=== PATIENT | male | born 1970 | race Hispanic/Latino ===

== ENCOUNTER 2020-08-30 17:57 | Emergency (ER) | payer MEDICARE ==
[2020-08-30 19:18] LABS: APPEARANCE,URINE SL CLOUDY (CLEAR); BILIRUBIN,URINE NEGATIVE (NEGATIVE); COLOR,URINE YELLOW (YELLOW); GLUCOSE, URINE (UA) NEGATIVE (NEGATIVE); KETONES,URINE 5 mg/dL (NEGATIVE); LEUKOCYTE ESTERASE ,URINE SMALL (NEGATIVE); NITRATE,URINE NEGATIVE (NEGATIVE); OCCULT BLOOD,URINE LARGE (NEGATIVE); PH,URINE 6.5 (5.0-8.0); PROTEIN,URINE 100 mg/dL (NEGATIVE)
[2020-08-30 19:26] LABS: BACTERIA,URINE Few /HPF (None Seen)
[2020-08-30 19:28] LABS: AMORPHOUS SEDIMENT,UR Rare /LPF (None Seen); MUCUS,URINE Few LPF (None Seen); SQUAMOUS EPITHELIAL CELL,UR Few /HPF (0-2)
[2020-08-30] MEDS ORDERED: LIDOCAINE HCL-MPF 1% 2ML VIAL ONE (20:16)
[2020-08-30] MEDS ORDERED: CEFTRIAXONE SODIUM 1 GM ONE (20:17)
== END 2020-08-30 20:51 | disposition home or self-care (01) ==
LOC: EDH 17:57 → EDBD 17:57 → EDH 20:51
DX: N39.0 Urinary tract infection, site not specified (principal); R33.9 Retention of urine, unspecified; I10 Essential (primary) hypertension; E78.00 Pure hypercholesterolemia, unspecified
CPT/HCPCS: 51702; 81001; 87077; 87088; 87186; 96372; 99284; J0696; J3490

== ENCOUNTER 2020-09-26 18:14 | Emergency (ER) | payer MEDICARE ==
[2020-09-26 18:47] LABS: APPEARANCE,URINE CLOUDY (CLEAR); BILIRUBIN,URINE NEGATIVE (NEGATIVE); COLOR,URINE ORANGE (YELLOW); GLUCOSE, URINE (UA) NEGATIVE (NEGATIVE); KETONES,URINE 5 mg/dL (NEGATIVE); LEUKOCYTE ESTERASE ,URINE MODERATE (NEGATIVE); NITRATE,URINE NEGATIVE (NEGATIVE); OCCULT BLOOD,URINE LARGE (NEGATIVE); PH,URINE 7.5 (5.0-8.0); PROTEIN,URINE 30 mg/dL (NEGATIVE); UROBILINOGEN,URINE 0.2 mg/dL (0.2-1.0)
[2020-09-26 18:47] LABS: BASOPHILS % (AUTO) 0.1 % (0.0-5.0); EOSINOPHILS % (AUTO) 3.1 % (0.0-8.0); HEMATOCRIT 41.5 % (42-54); LYMPHOCYTES % (AUTO) 25.9 % (21.0-51.0); MEAN CORPUSCULAR HEMOGLOBIN 31.1 pg (27.0-33.0); MEAN CORPUSCULAR VOLUME 94.1 fL (79-99); MONOCYTES % (AUTO) 10.1 % (3.0-13.0); NEUTROPHILS % (AUTO) 60.4 % (40.0-77.0); PLATELET COUNT (AUTO) 174 K/uL (130-400); RED BLOOD CELL COUNT(AUTO) 4.41 MIL/uL (4.50-6.20); RED CELL DISTRIBUTION WIDTH 13.8 % (11.0-15.5); WHITE BLOOD COUNT (AUTO) 7.5 K/uL (4.8-10.8)
[2020-09-26 18:58] LABS: CREATININE 0.8 mg/dL (0.5-1.5); POTASSIUM 3.5 mmol/L (3.5-5.1)
[2020-09-26 19:04] LABS: ALBUMIN 3.9 g/dL (3.5-5.0); BILIRUBIN,TOTAL 0.3 mg/dL (0.2-1.0); TOTAL PROTEIN, SERUM 7.8 g/dL (6.0-8.3)
[2020-09-26 19:04] LABS: RBC,URINE TNTC /HPF (0-1)
[2020-09-26 19:05] LABS: BACTERIA,URINE Few /HPF (None Seen); SQUAMOUS EPITHELIAL CELL,UR None Seen /HPF (0-2)
[2020-09-26] MEDS ORDERED: CEFTRIAXONE SODIUM 1 GM ONE (19:38)
[2020-09-26] MEDS ORDERED: LIDOCAINE HCL-MPF 1% 2ML VIAL ONE (19:38)
== END 2020-09-26 19:57 | disposition home or self-care (01) ==
LOC: EDH 18:14
DX: T83.091A Other mechanical complication of indwelling urethral catheter, initial encounter (principal); N39.0 Urinary tract infection, site not specified; R33.9 Retention of urine, unspecified; I10 Essential (primary) hypertension; E78.00 Pure hypercholesterolemia, unspecified
CPT/HCPCS: 36415; 80053; 81001; 85025; 87077; 87088; 87186; 96372; 99283; J0696; J3490

== ENCOUNTER 2021-09-21 13:27 | Emergency (ER) | payer MEDICARE ==
[~2021-09-21] VITALS: Ht 172.7 cm; Wt 95.3 kg
[2021-09-21] MEDS ORDERED: LEVETIRACETAM 1,500 MG in 0.9%NACL 100ML 100 ML IV SCH (14:00)
[2021-09-21] MEDS ORDERED: LORAZEPAM 2 MG/ML 1 ML VIAL IVP SCH (14:00)
[2021-09-21] MEDS ORDERED: COMPOUND IV MISC 1 EACH IVSOLN MISC PRN ×2 (14:00)
[2021-09-21 14:11] LABS: BASOPHILS % (AUTO) 0.2 % (0.0-5.0); EOSINOPHILS % (AUTO) 2.5 % (0.0-8.0); HEMATOCRIT 39.5 % (42-54); MEAN CORPUSCULAR HEMOGLOBIN 31.1 pg (27.0-33.0); MEAN CORPUSCULAR HGB CONC 32.2 g/dL (32.0-36.0); MEAN CORPUSCULAR VOLUME 96.6 fL (79-99); MONOCYTES % (AUTO) 7.9 % (3.0-13.0); NEUTROPHILS % (AUTO) 59.2 % (40.0-77.0); PLATELET COUNT (AUTO) 107 K/uL (130-400); RED BLOOD CELL COUNT(AUTO) 4.09 MIL/uL (4.50-6.20); RED CELL DISTRIBUTION WIDTH 12.7 % (11.0-15.5); WHITE BLOOD COUNT (AUTO) 4.4 K/uL (4.8-10.8)
[2021-09-21 14:19] LABS: ALANINE AMINOTRANSFERASE 16 U/L (12-78); ALBUMIN 3.4 g/dL (3.5-5.0); ASPARTATE AMINOTRANSFERASE 20 U/L (10-37); BILIRUBIN,TOTAL 0.2 mg/dL (0.2-1.0); CARBON DIOXIDE 26 mmol/L (21-32); CHLORIDE 103 mmol/L (101-111); CREATININE 0.7 mg/dL (0.5-1.5); GLOMERULAR FILTR. RATE CALC 125 mL/min (>60); GLUCOSE,RANDOM 120 mg/dL (70-105); POTASSIUM 3.4 mmol/L (3.5-5.1); SODIUM SERUM 135 mmol/L (136-145); TOTAL PROTEIN, SERUM 6.7 g/dL (6.0-8.3); UREA NITROGEN, BLOOD 8 mg/dL (7-18); VALPROIC ACID 81 mcg/mL (50-100)
[2021-09-21 14:26] LABS: APPEARANCE,URINE Clear (CLEAR); BILIRUBIN,URINE Negative (NEGATIVE); COLOR,URINE Yellow (YELLOW); GLUCOSE, URINE (UA) Negative (NEGATIVE); KETONES,URINE Negative (NEGATIVE); LEUKOCYTE ESTERASE ,URINE Negative (NEGATIVE); NITRATE,URINE Negative (NEGATIVE); OCCULT BLOOD,URINE Negative (NEGATIVE); PH,URINE 7.5 (5.0-8.0); PROTEIN,URINE Negative (NEGATIVE)
[2021-09-21 14:38] LABS: CRP QUANTITATIVE < 2.00 mg/L (0.00-9.0)
[2021-09-21] MEDS ORDERED: ACETAMINOPHEN 500 MG TABLET PO ONE (15:30)
[2021-09-21] MEDS ORDERED: ACET-2247 PO (15:58)
[2021-09-21] MEDS ORDERED: LEVE-43 PO (15:58)
[2021-09-21] MEDS ORDERED: TOPI100T31 PO (16:22)
[2021-09-21 16:39] VITALS: BP 98/60
== END 2021-09-21 16:45 | disposition home or self-care (01) ==
LOC: EDH 13:27
DX: G40.909 Epilepsy, unspecified, not intractable, without status epilepticus (principal); I10 Essential (primary) hypertension; R51.9 Headache, unspecified; E11.9 Type 2 diabetes mellitus without complications; E78.00 Pure hypercholesterolemia, unspecified; J45.909 Unspecified asthma, uncomplicated; Z79.899 Other long term (current) drug therapy
CPT/HCPCS: 36415; 70450; 71045; 80053; 80164; 80177; 81003; 84484; 85025; 86140; 93005; 96365; 96375; 99285; J1953; J2060

== ENCOUNTER 2022-04-11 22:00 | Emergency (ER) | payer OTHER, MEDICARE ==
[~2022-04-11] VITALS: Ht 172.7 cm; Wt 97.5 kg
[~2022-04-11 22:00] MED LIST: ACET-2247 PO; TOPI100T31 PO
[2022-04-11 22:02] VITALS: BP 130/70
[2022-04-11] MEDS ORDERED: NAPR-1180 PO (22:20)
[2022-04-11] MEDS ORDERED: ACET-2079 PO (22:20)
== END 2022-04-11 22:32 | disposition home or self-care (01) ==
LOC: EDH 22:00
DX: G89.18 Other acute postprocedural pain (principal); M54.50 Low back pain, unspecified; E03.9 Hypothyroidism, unspecified; E78.00 Pure hypercholesterolemia, unspecified; G20 Parkinson's disease; I10 Essential (primary) hypertension; I25.10 Atherosclerotic heart disease of native coronary artery without angina pectoris

== ENCOUNTER 2022-04-24 00:21 | Emergency (ER) | payer OTHER, MEDICARE ==
[~2022-04-24] VITALS: Ht 172.7 cm; Wt 97.5 kg
[~2022-04-24 00:21] MED LIST changes: +ACET-2079 PO; +NAPR-1180 PO
[2022-04-24] MEDS ORDERED: KETOROLAC 60 MG VIAL (30MG/ML) IM ONE (04:30)
[2022-04-24] MEDS ORDERED: DEXAMETHASONE SOD PHOSPHATE 4 MG/ML 1ML VIAL IM ONE ×2 (04:30→05:00)
[2022-04-24] MEDS ORDERED: ORPHENADRINE CITRATE 30 MG/ML ML IM ONE (04:30)
[2022-04-24 05:50] VITALS: BP 123/73
[2022-04-24] MEDS ORDERED: NAPR375T6 PO (08:34)
[2022-04-24] MEDS ORDERED: METH2TAB PO (08:34)
== END 2022-04-24 08:47 | disposition home or self-care (01) ==
LOC: EDH 00:21
DX: M48.061 Spinal stenosis, lumbar region without neurogenic claudication (principal); E03.9 Hypothyroidism, unspecified; E78.00 Pure hypercholesterolemia, unspecified; I10 Essential (primary) hypertension; Z79.1 Long term (current) use of non-steroidal anti-inflammatories (NSAID); Z79.52 Long term (current) use of systemic steroids
CPT/HCPCS: 72131; 96372; J1100; J1885